=== PATIENT | female | born 2000 | race Caucasian/White ===

== ENCOUNTER → 2021-08-10 | Outpatient (CLI) | payer SELFPAY ==
[2021-08-09 10:40] LABS: Amphetamine Urine VISTA NEGATIVE (<1000 ng/mL); Barbiturate Urine VISTA NEGATIVE (< 200 ng/mL); Benzodiazepine Urine VISTA NEGATIVE (< 200 ng/mL); Cocaine Urine VISTA NEGATIVE (< 300 ng/mL); Ecstacy Urine VISTA NEGATIVE (< 500 ng/mL); Methadone Urine VISTA NEGATIVE (< 300 ng/mL); PCP Urine VISTA NEGATIVE (< 25 ng/mL); THC Urine VISTA NEGATIVE (< 50 ng/mL); Vista UDS pH Range 5
[2021-08-10 21:07] LABS: Chlamydia By Nucleic Acid AMP Negative (Negative)
[2021-08-10 21:48] LABS: Gonococcus By Nucleic Acid AMP Negative (Negative)
== END | disposition home or self-care (01) ==
PROVIDERS: Referring Provider Obstetrics & Gynecology; Visit Provider Obstetrics & Gynecology
DX: Z34.00 Encounter for supervision of normal first pregnancy, unspecified trimester (principal)
CPT/HCPCS: 80307; 87086; 87088; 87491; 87591

== ENCOUNTER → 2021-10-04 | Outpatient (CLI) | payer OTHER, SELFPAY ==
[2021-10-04 09:10] LABS: Absolute Lymphocyte Count 1.27 X10^3/uL (0.83-4.51); Absolute Neutrophil Count 5.1 X10^3/uL (2.0-7.7); Basophil# 0.04 X10^3/uL; Basophil% 0.6 % (0-1); Eosinophil# 0.02 X10^3/uL; Eosinophils% 0.3 % (0-5); Hematocrit 39.2 % (37-47); Hemoglobin 13.3 g/dL (12.0-15.0); Lymphocyte # 1.27 X10^3/ul (0.83-4.51); Lymphocyte % 18.3 % (19-41); Mean Corp Hgb Conc 33.9 g/dL (32-36); Mean Corpuscular Hgb 30.4 pg (27.0-32.0); Mean Corpuscular Volume 89.5 fL (81-99); Mean Platelet Vol. 11.1 fl (6.2-12.0); Monocyte# 0.44 X10^3/uL; Monocyte% 6.3 % (0-10); NRBC Flagged by Analyzer 0 % (0-5); Neutrophil # 5.14 X10^3/uL (2.7-7.7); Neutrophil % 74.1 % (47-70); Platelet Count 150 K/mm3 (150-450); RBC Distribution Width CV 13.3 % (11.6-14.6); RBC Distribution Width SD 43.8 fl (35.1-43.9); Red Blood Count 4.38 M/mm3 (4.2-5.4); White Blood Count 6.9 K/mm3 (4.4-11.0)
[2021-10-04 10:03] LABS: NATERA MAILED SPECIMEN
[2021-10-04 10:25] LABS: HIV - WCH Non-Reactive (Nonreactive); Hepatitis B Surface Antigen Non-Reactive (Nonreactive); Hepatitis C Antibody Non-Reactive (Nonreactive); Rubella IgG Reactive (Nonreactive); Syphilis Antibodies Non-reactive
== END | disposition home or self-care (01) ==
PROVIDERS: Obstetrics & Gynecology; Referring Provider Nurse Practitioner Women's Health; Visit Provider Nurse Practitioner Women's Health
DX: Z34.00 Encounter for supervision of normal first pregnancy, unspecified trimester (principal)
CPT/HCPCS: 36415; 85025; 86703; 86762; 86780; 86803; 86850; 86900; 86901; 87340

== ENCOUNTER → 2021-10-16 | Outpatient (CLI) | payer OTHER, SELFPAY ==
--- NOTE | 2021-10-16 10:39 | US_ITS ---
INDICATION: anatomy . EXAMINATION: Ultrasound US OB Greater Than 14 Weeks TECHNIQUE: Transabdominal pelvic ultrasound was performed. COMPARISON: None. LMP: Unknown. Beta-hCG: Unknown. Provided EGA: None. FINDINGS: INTRAUTERINE GESTATION(s): Single. HEART MOTION is 145 bpm. BIOMETRIC MEASUREMENTS: HEAD CIRCUMFERENCE: 17.06 cm which corresponds with 19 weeks and 4 days. BIPARIETAL DIAMETER: 4.41 cm which corresponds to 19 weeks and 2 days. ABDOMINAL CIRCUMFERENCE: 14.51 cm which corresponds to 19 weeks and 5 days. FEMORAL LENGTH: 2.87 cm which corresponds to 18 weeks and 5 days.. Estimated age by current ultrasound 19 weeks and 3 days. age by LMP 19 weeks and 1 day. ESTIMATED DUE DATE (LINNEA): 03/09/2022 Expected date of delivery by LMP 03/11/2022. ESTIMATED WEIGHT: 28.9 g +/- 4.3 g PRESENTATION: Cephalic AMNIOTIC FLUID INDEX (FIONA): Within normal limits, largest fluid pocket 3.0 x 8.7 cm BIOPHYSICAL PROFILE (BPP): Not assessed. PLACENTA: Anterior. There is no placenta previa or abruption. CERVIX: The cervix is closed. Cervical length measures 4.6 cm. MATERNAL OVARIES: Not seen. FREE FLUID: None. ANATOMY: LATERAL VENTRICLES: Visualized. CHOROID PLEXUS: Visualized. MIDLINE FALX: Visualized. CAVUM SEPTUM PELLUCIDI: Visualized. CEREBELLUM: Unremarkable CISTERNA MAGNA: Visualized. UPPER LIP: Intact. FOUR CHAMBER HEART VIEW: Unremarkable. LEFT VENTRICULAR OUTFLOW TRACT: Visualized. RIGHT VENTRICULAR OUTFLOW TRACT: Visualized. STOMACH: Visualized. KIDNEYS: Visualized, mild dilation of bilateral renal pelvis seen and 0.4 cm. URINARY BLADDER: Visualized. UMBILICAL CORD INSERTION into the abdomen: Unremarkable. UMBILICAL CORD vessel number: Normal three vessel cord. SPINE: Unremarkable. No posterior spinal defect observed. UPPER AND LOWER EXTREMITIES: Present. GENDER: Not assessed. US/OB Anatomy Scan IMPRESSION: Single live intrauterine male with an estimated gestational age of 19 weeks and 3 days. mild dilation of bilateral renal pelvis seen and 0.4 cm. Electronically Signed: Kendell Florez MD at 15:03 EDT ,
== END | disposition home or self-care (01) ==
LOC: OPUS 10:30 → US 10:36
PROVIDERS: Referring Provider Obstetrics & Gynecology; Visit Provider Obstetrics & Gynecology
DX: Z34.02 Encounter for supervision of normal first pregnancy, second trimester (principal); Z3A.19 19 weeks gestation of pregnancy
CPT/HCPCS: 76805; 76817

== ENCOUNTER → 2021-12-18 | Outpatient (CLI) | payer OTHER, SELFPAY ==
[2021-12-18 11:15] LABS: Absolute Lymphocyte Count 1.43 X10^3/uL (0.83-4.51); Absolute Neutrophil Count 6.9 X10^3/uL (2.0-7.7); Basophil# 0.02 X10^3/uL; Basophil% 0.2 % (0-1); Eosinophil# 0.06 X10^3/uL; Eosinophils% 0.7 % (0-5); Hematocrit 35.8 % (37-47); Hemoglobin 12.3 g/dL (12.0-15.0); Lymphocyte # 1.43 X10^3/ul (0.83-4.51); Lymphocyte % 15.5 % (19-41); Mean Corp Hgb Conc 34.4 g/dL (32-36); Mean Corpuscular Volume 93.2 fL (81-99); Mean Platelet Vol. 10.8 fl (6.2-12.0); Monocyte# 0.73 X10^3/uL; Monocyte% 7.9 % (0-10); NRBC Flagged by Analyzer 0 % (0-5); Neutrophil # 6.93 X10^3/uL (2.7-7.7); Neutrophil % 75.3 % (47-70); Platelet Count 150 K/mm3 (150-450); RBC Distribution Width CV 13.2 % (11.6-14.6); RBC Distribution Width SD 44.5 fl (35.1-43.9); Red Blood Count 3.84 M/mm3 (4.2-5.4); White Blood Count 9.2 K/mm3 (4.4-11.0)
[2021-12-18 11:41] LABS: Glucose Challenge Gest 1H 50g 97 mg/dL (70-140)
== END | disposition home or self-care (01) ==
LOC: PAVLAB 10:53
PROVIDERS: Referring Provider Nurse Practitioner Women's Health; Visit Provider Nurse Practitioner Women's Health
DX: Z34.92 Encounter for supervision of normal pregnancy, unspecified, second trimester (principal); Z3A.25 25 weeks gestation of pregnancy
CPT/HCPCS: 36415; 82950; 85025; 86900; 86901

== ENCOUNTER → 2022-02-14 | Outpatient (CLI) | payer OTHER, SELFPAY | END | disposition home or self-care (01) | LOC: LABSPEC 11:51 | PROVIDERS: Visit Provider Obstetrics & Gynecology | DX: Z34.03 Encounter for supervision of normal first pregnancy, third trimester (principal) | CPT/HCPCS: 87081 ==

== ENCOUNTER 2022-02-24 09:45 | Outpatient (CLI) | payer OTHER, SELFPAY ==
[2022-02-24 10:01] VITALS: BP 112/67; PULSE 81; TEMP 36.6
[2022-02-24 10:02] VITALS: O2SAT 97
[2022-02-24 10:04] VITALS: BMI 31.6
[2022-02-24 10:43] LABS: ROM Internal Control Test YES-OK TO RESULT pt. (Internal QC); ROM Patient Test Negative (Negative)
--- NOTE | 2022-02-24 15:14 | OB.TRI.PN ---
Progress Notes Date of Service: 02/24/22 Progress Note: Patient presents for triage evaluation secondary to false labor1 FHT: 130 Moderate variability reactive no decelerations category I tracing [place]: no regular Contractions Assessment and plan: amniotic membranes intact false labor no cervical change rom negative Reactive NST, reassuring maternal and status patient discharged to home to follow-up as scheduled. See problem list details for additional plan information. Laboratory Studies: Laboratory Tests 02/24/22 Range/Units 10:12 Vag Amniotic Fld Detect Negative (Negative) Charges/Coding Procedures Urinary/Genital 52xxx-59xxx: 48853-30 non-stress test Interp
== END 2022-02-24 10:57 | disposition home or self-care (01) ==
LOC: WPOUT 09:52 → WP 09:52
PROVIDERS: Referring Provider Obstetrics & Gynecology; Visit Provider Obstetrics & Gynecology
DX: O47.9 False labor, unspecified (principal); Z3A.00 Weeks of gestation of pregnancy not specified
CPT/HCPCS: 59025; 59050; 84112; 99218; G0378

== ENCOUNTER 2022-02-25 02:22 | Inpatient (IN) | payer OTHER, SELFPAY ==
[2022-02-25] VITALS (39 sets, daily range): BP systolic 89–117; BP diastolic 49–68; PULSE 67–103; RESP 16; TEMP 36.3–37.6; O2SAT 88–100; BMI 31.8
[2022-02-25 02:21] LABS: ROM Internal Control Test YES-OK TO RESULT pt. (Internal QC); ROM Patient Test POSITIVE (Negative)
[2022-02-25] MEDS: LACTATED RINGERS 500 ML 999 ML IV ×2 (02:41→05:46)
[2022-02-25 02:53] LABS: Absolute Lymphocyte Count 1.53 X10^3/uL (0.83-4.51); Absolute Neutrophil Count 6.7 X10^3/uL (2.0-7.7); Basophil# 0.03 X10^3/uL; Basophil% 0.3 % (0-1); Eosinophil# 0.07 X10^3/uL; Eosinophils% 0.8 % (0-5); Hematocrit 34.3 % (37-47); Hemoglobin 11.1 g/dL (12.0-15.0); Lymphocyte # 1.53 X10^3/ul (0.83-4.51); Lymphocyte % 16.4 % (19-41); Mean Corp Hgb Conc 32.4 g/dL (32-36); Mean Corpuscular Hgb 28.8 pg (27.0-32.0); Mean Corpuscular Volume 89.1 fL (81-99); Mean Platelet Vol. 11.6 fl (6.2-12.0); Monocyte# 0.93 X10^3/uL; NRBC Flagged by Analyzer 0 % (0-5); Neutrophil # 6.72 X10^3/uL (2.7-7.7); Platelet Count 157 K/mm3 (150-450); RBC Distribution Width CV 13.2 % (11.6-14.6); Red Blood Count 3.85 M/mm3 (4.2-5.4); White Blood Count 9.3 K/mm3 (4.4-11.0)
[2022-02-25] MEDS: Lactated Ringers 1,000 ML 200 ML IV ×3 (03:12→13:16)
[2022-02-25] MEDS: fentaNYL-bupivacaine (epidural) 100 ML BAG EPIDURAL ×2 (03:47→08:39)
[2022-02-25] MEDS: Oxytocin 15 Units/NS 250ml 15 UNITS/250 ML IV.SOLN 2 UNITS IV (05:19)
--- NOTE | 2022-02-25 06:41 | HP.PCM.OB_ITS ---
HPI - General General Date of Admission: 02/25/22 HPI Narrative TYRELL CASAREZ, is a 21 F who presents IAL with SROM clear fluid regular ctx no vb good fm Maternal Data Information LINNEA Calculator Estimated Delivery Date Method Current WG Current Estimate 03/11/22 LMP (Certain) 38w 0d Other Estimates 03/07/22 Ultrasound #1 38w 4d PFSH PFSH Medical History pyelectasis Home Medications prenat.vits,audrey,[id number] 1 tab PO DAILY 07/26/21 [History Last Taken Unknown] Allergy/AdvReac Type Severity Reaction Status Date / Time No Known Allergies Allergy Verified 02/24/22 10:04 Social History adopted: No household members: significant other current occupational status: employed current occupation: [employer] pets and animals: Yes pets and animals: cat(s) and dog(s) Smoking Status: Never smoker alcohol intake: never substance use type: does not use do you feel safe at home: Yes additional social history: Margarito BF History 1 Elective abortions Hx Para 0 Spontaneous abortions Hx # Term Pregnancies Ectopic pregnancies Hx # Pregnancies Multiple births # of living children Visit Details Expected Delivery Route/Plan Labor Preferences- CB/BF classes: encouraged labor support person: Margarito labor intervention preferences: [] pain management options preferred: open to epidural but wants limited cut cord/dad catch: maybe : yes PP control planned: discussed discussed possible routes of delivery and associated risks: [] special requests: [] Plans Covid status: discussed Flu vaccine: discussed will get 01/05 Tdap vaccine: [] Rhogam: given 12/18/21 LARC form signed: yes movement and labor precautions reviewed. Problem list reviewed and updated with the most current plan of care details and appropriate orders placed. Relevant counseling for the gestational age provided. Continue routine care and follow up unless otherwise noted in visit notes/problem list details OB Flowsheet Initial Weight: Not Recorded Date -?-?-?-?-?-?-?-?-?-?-?-?- EGA Weight BP Urine Prot -?-?-?-?-?-?-?-?-?-?-?-?- Glucose FHR FuHt Pres Dilation -?-?-?-?-?-?-?-?-?-?-?-?- Effaced St Visit Note 08/09/21 -?-?-?-?-?-?-?-?-?-?-?-?- 9w 3d 123 lb 6 oz -?-?-?-?-?-?-?-?-?-?-?-?- 171 -?-?-?-?-?-?-?-?-?-?-?-?- JV- CRL only off by a few days from LMP. LINNEA 03/11/22 09/06/21 -?-?-?-?-?-?-?-?-?-?-?-?- 13w 3d 124 lb 2 oz 100/56 Nega tive -?-?-?-?-?-?-?-?-?-?-?-?- Negative 149 -?-?-?-?-?-?-?-?-?-?-?-?- JV- CRL appropri ate today. no complaints. anatomy ultrasound ordered. nausea is improved. 10/04/21 -?-?-?-?-?-?-?-?-?-?-?-?- 17w 3d 129 lb 6 oz 114/60 Nega tive -?-?-?-?-?-?-?-?-?-?-?-?- Negative 143 -?-?-?-?-?-?-?-?-?-?-?-?- NO VB, cramping. Denies concerns. PN labs and genetics today 11/02/21 -?-?-?-?-?-?-?-?-?-?-?-?- 21w 4d 131 lb 120/66 Negative -?-?-?-?-?-?-?-?-?-?-?-?- Negative 150 20 -?-?-?-?-?-?-?-?-?-?--?-?- JV- no lof, vagi nal bleeding, or cramping . carrier for spinal muscular atrophy. offerred testing for partner. 11/29/21 -?-?-?-?-?-?-?-?-?-?-?-?- 25w 3d 144 lb 110/62 Negative -?-?-?-?-?-?-?-?-?-?-?-?- Negative 150 25 -?-?-?-?-?-?-?-?-?-?-?-?- MH-No VB, LOF. G ood FM. Larc. 28 wk US to check kidneys with MFM 12/0412/18/21 -?-?-?-?-?-?-?-?-?-?-?-?- 28w 1d 158 lb 158 lb 112/68 114/70 112/68 -?-?-?-?-?-?-?-?-?-?-?-?- 145 28 -?-?-?-?-?--?-?-?-?-?-?-?- SM- no vb lof go od fm no regular ctx cbcb gct rhogam 01/05/22 -?-?-?-?-?-?-?-?-?-?-?-?- 30w 5d 159 lb 2 oz 118/74 Nega tive -?-?-?-?-?-?-?-?--?-?-?-?- Negative 156 31 -?-?-?-?-?-?-?-?-?-?-?-?- LC-no ctx,lof,vb . good FM. normal 28 week labs.constipation-to trial colace 100mg bid. discussed flu and tdap. will obtain next visit. 01/15/22 -?-?-?-?-?-?-?-?-?-?-?-?- 32w 1d 162 lb 2 oz 129/80 Nega tive -?-?-?-?-?-?-?-?-?-?-?-?- Negative 125 32 -?-?-?-?-?-?-?-?-?-?-?-?- LC-no ctx, lof,v b. good fm. having muscle cramping at night- stretching and mg recommended. 01/29/22 -?-?-?-?-?-?-?-?-?-?-?-?- 34w 1d 165 lb 8 oz 105/67 Trac e -?-?-?-?-?-?-?-?-?-?-?-?- Negative 138 34 -?-?-?-?-?-?-?-?-?-?-?-?- LC- no ctx,lof,v b. good fm. accepts tdap and flu vaccine today. ultrasound demonstrates resolved pyelectaisis. 02/14/22 -?-?-?-?-?-?-?-?-?-?-?-?- 36w 3d 172 lb 106/69 Negative -?-?-?-?-?-?-?-?-?-?-?-?- Negative 135 37 Cephalic 1 .5 -?-?-?-?-?-?-?-?-?-?-?-?- 80 JV- no l of, vaginal bleeding, or dec FM. GBS collected. 02/23/22 -?-?-?-?-?-?-?-?-?-?-?-?- 37w 5d 173 lb 4 oz 114/73 Nega tive -?-?-?-?-?-?-?-?-?-?-?-?- Negative 145 38 Cephalic 1 .5 -?-?-?-?-?-?-?-?-?-?-?-?- 80 -2 JV- no lof , vaginal bleeding, or dec fm. GBS neg. No complaints. kick counts and labor precautions discussed. 02/25/22 -?-?-?-?-?-?-?-?-?-?-?-?- 38w 0d 174 lb 6 oz 115/65 111/61 111/56 114/62 107/60 108/59 107/58 117/57 113/55 96/53 90/55 92/50 107/57 -?-?-?-?-?-?-?-?-?-?-?-?- -?-?-?-?-?-?-?-?-?-?-?-?- NST FHR Rate Baby A Baseline: 140 Variability:: Moderate Accelerations:: 15 x 15 Decelerations:: None NST Reactive:: Yes FHR Category:: Category I Uterine Activity:: q3-5 ROS Constitutional Constitutional: Reports systems reviewed and no addt'l complaints, except as documented ENT HEENT: Reports systems reviewed and no addt'l complaints, except as documented Cardiovascular Cardiovascular: Reports systems reviewed and no addt'l complaints, except as documented Respiratory/Chest Respiratory/Chest: Reports systems reviewed and no addt'l complaints, except as documented Gastrointestinal Gastrointestinal: Reports systems reviewed and no addt'l complaints, except as documented and nausea; Denies abdominal pain Genitourinary Genitourinary: Reports systems reviewed and no addt'l complaints, except as documented, contractions Details: present and frequency (regular ) and movement Details: present Musculoskeletal Musculoskeletal: Reports systems reviewed and no addt'l complaints, except as documented Integumentary Integumentary: Reports as per HPI Neurologic Neurologic: Reports systems reviewed and no addt'l complaints, except as docum ented Endocrine Endocrinology: Reports systems reviewed and no addt'l complaints, except as documented Vital Signs Vital Signs Vital Signs: 02/25/22 01:56 02/25/22 01:56 02/25/22 01:56 Temperature Temperature Source Temporal Pulse Rate 86 Blood Pressure 115/65 BP Systolic 115 BP Diastolic 65 Pulse Ox 02/25/22 01:56 02/25/22 03:24 02/25/22 03:24 Temperature 98.0 F Temperature Source Pulse Rate 91 Blood Pressure BP Systolic BP Diastolic Pulse Ox 98 02/25/22 03:30 02/25/22 03:30 02/25/22 03:29 Temperature Temperature Source Pulse Rate 83 Blood Pressure 111/61 BP Systolic 111 BP Diastolic 61 Pulse Ox 100 02/25/22 03:34 02/25/22 03:34 02/25/22 03:35 Temperature Temperature Source Pulse Rate 84 Blood Pressure 111/56 L BP Systolic 111 BP Diastolic 56 Pulse Ox 99 02/25/22 03:35 02/25/22 03:40 02/25/22 03:40 Temperature Temperature Source Pulse Rate 78 82 Blood Pressure 114/62 BP Systolic 114 BP Diastolic 62 Pulse Ox 02/25/22 03:40 02/25/22 03:45 02/25/22 03:45 Temperature Temperature Source Pulse Rate 74 Blood Pressure 107/60 BP Systolic 107 BP Diastolic 60 Pulse Ox 97 02/25/22 03:45 02/25/22 03:45 02/25/22 03:51 Temperature Temperature Source Pulse Rate 77 Blood Pressure 108/59 L BP Systolic 108 BP Diastolic 59 Pulse Ox 99 02/25/22 03:51 02/25/22 03:50 02/25/22 03:55 Temperature Temperature Source Pulse Rate 72 Blood Pressure 107/58 L BP Systolic 107 BP Diastolic 58 Pulse Ox 99 02/25/22 03:55 02/25/22 03:55 02/25/22 03:55 Temperature Temperature Source Pulse Rate 70 79 Blood Pressure BP Systolic BP Diastolic Pulse Ox 99 02/25/22 04:00 02/25/22 04:00 02/25/22 04:01 Temperature Temperature Source Pulse Rate 80 76 Blood Pressure BP Systolic BP Diastolic Pulse Ox 88 02/25/22 04:01 02/25/22 04:05 02/25/22 04:05 Temperature Temperature Source Pulse Rate 72 Blood Pressure 117/57 L BP Systolic 117 BP Diastolic 57 Pulse Ox 99 02/25/22 04:06 02/25/22 04:06 02/25/22 04:10 Temperature Temperature Source Pulse Rate 70 Blood Pressure 113/55 L BP Systolic 113 BP Diastolic 55 Pulse Ox 100 02/25/22 04:10 02/25/22 04:11 02/25/22 04:11 Temperature Temperature Source Pulse Rate 67 73 Blood Pressure BP Systolic BP Diastolic Pulse Ox 100 02/25/22 04:15 02/25/22 04:15 02/25/22 04:30 Temperature Temperature Source Pulse Rate 79 Blood Pressure 96/53 L 90/55 L BP Systolic 96 90 BP Diastolic 53 55 Pulse Ox 02/25/22 04:30 02/25/22 04:46 02/25/22 04:46 Temperature Temperature Source Pulse Rate 82 82 Blood Pressure 92/50 L BP Systolic 92 BP Diastolic 50 Pulse Ox 02/25/22 06:32 02/25/22 06:32 02/25/22 06:32 Temperature Temperature Source Temporal Pulse Rate 75 Blood Pressure 107/57 L BP Systolic 107 BP Diastolic 57 Pulse Ox 02/25/22 06:32 Temperature 98.0 F Temperature Source Pulse Rate Blood Pressure BP Systolic BP Diastolic Pulse Ox Weight Weight: 174 lb 6 oz Body Mass Index (BMI) 31.8 Physical Exam Const alert, oriented x3 and healthy appearing Constitutional Narrative: uncomfortable with contractions HEENT normocephalic and moist oral mucous membranes Head and Scalp: atraumatic Neck full ROM, no lymphadenopathy, supple and thyroid normal General: trachea midline Thyroid: thyroid normal Lymph Lymphatic: no lymphadenopathy noted Chest inspection of chest normal Resp normal respiratory effort Cardio regular rate GI normal to inspection, nondistended, normoactive bowel sounds, soft to palpation and non-tender Inspection: gravid external exam normal Bimanual Exam - Vag & Uterus: uterus non-tender Manual OB Exam: estimated gestational size appropriate, presentation cephalic, dilated, effaced and station Extremity normal to inspection General Extremity: Negative for edema Skin no rashes or lesions noted Neuro deep tendon reflexes 2+ bilaterally Motor Exam: strength 5/5 throughout and clonus absent Psych mental status grossly normal Labs Labs Labs: Blood Type A NEGATIVE Antibody Screen NEGATIVE Hct 34.3 % (37-47) L Hgb 11.1 g/dL (12.0-15.0) L Obstetrics US Syphilis Total Ab Non-reactive Rubella IgG Antibody Reactive (Nonreactive) Hep Bs Antigen Non-Reactive (Nonreactive) Chlamydia DNA (BENITO) Negative (Negative) Neisseria gonorrhoeae DNA (BENITO) Negative (Negative) HIV 1&2 Antibody Non-Reactive (Nonreactive) Glucose 1 Hr 50 gm 97 mg/dL (70-140) Assessment & Plan (1) pyelectasis: COMMENT: left, reassess in 4 wks from 01/15(needs to tatiana.)01/18 resolved (2) Carrier of spinal muscular atrophy: COMMENT: partner offered testing- declined. (3) Dilation of renal pelvis of fetus: COMMENT: [facility] referral follow up anatomy US: rpt US 01/15(needs to resched.)01/18 growth 1981g 44% (4) Rh negative state in antepartum period: COMMENT: Rhogam 28 wk, prn bleeding and pp. (5) Supervision of normal first : QUALIFIERS: Trimester: third trimester Qualified Code(s): Z34.03 - Encounter for supervision of normal first , third trimester COMMENT: PRR LINNEA:03/11/22 BF:Margarito Landry (6) : QUALIFIERS: Weeks of gestation: 37 weeks Qualified Code(s): Z3A.37 - 37 weeks gestation of COMMENT: GBS negative, NIPT low risk, carrier neg. carrier for Spinal Muscular Atrophy. anatomy reviewed. (7) Anxiety: COMMENT: no meds currently (8) ADHD: COMMENT: Stopped Vyvanse in June (9) SROM (spontaneous rupture of membranes): (10) Active labor at term: PLAN: Plan Patient presents ial pit PRN. Pain management: plans epidural. GBS neg. Management of any complications: none I have reviewed the [facility] and made any clinically relevant updates.
[2022-02-25] MEDS: Ondansetron 4 MG/2 ML Vial IV (08:48)
[2022-02-25] MEDS: Acetaminophen 500 MG Tablet PO (14:24)
--- NOTE | 2022-02-25 14:25 | OP.PCM_ITS ---
Assessment & Plan (1) Active labor at term: (2) SROM (spontaneous rupture of membranes): (3) pyelectasis: COMMENT: left, reassess in 4 wks from 01/15(needs to tatiana.)01/18 resolved (4) Carrier of spinal muscular atrophy: COMMENT: partner offered testing- declined. (5) Dilation of renal pelvis of fetus: COMMENT: [facility] referral follow up anatomy US: rpt US 01/15(needs to resched.)01/18 growth 1981g 44% (6) Rh negative state in antepartum period: COMMENT: Rhogam 28 wk, prn bleeding and pp. (7) Supervision of normal first : QUALIFIERS: Trimester: third trimester Qualified Code(s): Z34.03 - Encounter for supervision of normal first , third trimester COMMENT: PRR LINNEA:03/11/22 BF:Margarito Prashanthling (8) : QUALIFIERS: Weeks of gestation: 37 weeks Qualified Code(s): Z3A.37 - 37 weeks gestation of COMMENT: GBS negative, NIPT low risk, carrier neg. carrier for Spinal Muscular Atrophy. anatomy reviewed. (9) Anxiety: COMMENT: no meds currently (10) ADHD: COMMENT: Stopped Vyvanse in June (11) Vaginal delivery: COMMENT: SM IAL 38 boy [place] Maternal Data Information LINNEA Calculator Estimated Delivery Date Method Current WG Current Estimate 03/11/22 LMP (Certain) 38w 0d Other Estimates 03/07/22 Ultrasound #1 38w 4d Vaginal Delivery Operative Information Date of Procedure: 02/25/22 Pre-Operative Diagnosis: IAL Post-Operative Diagnosis: same Surgery / Procedure Performed: Spontaneous Vaginal Delivery Type of Anesthesia: Epidural Special Medications: none Estimated Blood Loss: 200 Fluids Replaced: crystalloid Findings Description of Procedure: Patient began pushing and delivered the head in the GWEN presentation. The head was delivered atraumatically . The anterior and posterior shoulders delivered without complication followed by the rest of the and the was placed on the maternal abdomen. Delayed cord clamping was employed for approximately 60 seconds. Cord was clamped and cut and gentle traction was applied to the cord and the placenta delivered spontaneously immediately following it was noted to be intact with three-vessel cord. The perineum and vagina were inspected and noted to have no laceration. EBL was 200. Patient and tolerated delivery well. Presentation: GWEN Amniotic Membrane Rupture Type: Spontaneous Amniotic Fluid Description: Clear Placental Delivery Description: Spontaneous Placenta Disposition: [facility] Cord Vessel Description: 3 Vessels Cord Entanglement: None A Gender: Male Delayed Cord Clamping: Yes Post Vaginal Delivery Medications Given After Delivery: IV Pitocin Episiotomy Description: None Laceration: None Complication Complications: None Procedures Urinary/Genital 52xxx-59xxx: [id number] Vaginal Delivery [facility]
--- NOTE | 2022-02-25 14:27 | DCINST_ITS ---
Discharge Instructions Diet Discharge Diet: No restrictions Activity Discharge Activity: Return to Normal Activity, May Drive, May Shower and May Take a Tub Bath (in 4 weeks) May resume sexual activity in: 6-8 weeks (after seen by OB provider) Weight Bearing Status: Full weight bearing Lifting Restrictions: none Dressing / Incision Call your doctor if you observe: Fever of 101 or Higher, Inability to urinate, Using more than 1 pad per hour (for more than 2 hours in a row or more), Shortness of breath, Dizziness, Chest pain and - (headache not controlled with tylenol, change in vision) Follow Up Care When: in 6 weeks for visit, call the office to make the appointment. If you had elevated blood pressures call the office to be seen within 1 week. Test Results: Test results from this visit will be discussed in further detail at your follow- up appointment, if applicable. Discharge Plan Admission Admit Date/Time: 02/25/22 02:22 Attending Provider: Bethanie Arenas Primary Care Provider: Care Physician,lEsa Primary Discharge Orders/Prescriptions Prescriptions: No Action prenat.vits,audrey,[id number] Tablet 1 tab PO DAILY Referrals / Follow Up: Care Physician,No Primary [Primary Care Provider] - Disposition Disposition (needs filled in before D/C Order can be placed): Home, Self Care
[2022-02-25] MEDS: Acetaminophen 500 MG Tablet 1000 MG PO (23:52)
[2022-02-26 03:50] VITALS: BP 99/51; PULSE 78; RESP 16; TEMP 36.3; O2SAT 97
[2022-02-26 07:22] VITALS: BP 106/61; PULSE 79; RESP 16; TEMP 36.4; O2SAT 99
[2022-02-26] MEDS: Acetaminophen 500 MG Tablet 1000 MG PO (07:48)
--- NOTE | 2022-02-26 08:05 | PN.OBGYN_ITS ---
Subjective Subjective Patient doing well without complaints. Tolerating PO. Ambulating and voiding without difficulty. is not latching well, is finger feeding expressed milk, awaiting . Denies chest pain, shortness of breath, calf pain/swelling, fevers, chills, lightheadedness. Objective Data Objective Data Vital Signs: Vital Signs Temp Pulse Resp BP Pulse Ox O2 Del Method 97.6 F L 79 16 106/61 99 Room Air 02/26/22 07:22 02/26/22 07:22 02/26/22 07:22 02/26/22 07:22 02/26/22 07:22 02/26/22 07:22 Oxygen Delivery Method Room Air Weight: 174 lb 6 oz Body Mass Index (BMI) 31.8 Intake & Output: Intake and Output for Last 24 Hours 02/24/22 02/25/22 02/26/22 23:59 23:59 23:59 Intake Total 3373.33 / 3373.33 Output Total 3500 / 3500 Balance -126.67 / -126.67 Lab / Micro Data Attestation: I reviewed the patient's lab results. Result Diagrams: 02/25/22 02:40 ROS Constitutional Constitutional: Reports systems reviewed and no addt'l complaints, except as documented Eyes Eyes: Reports systems reviewed and no addt'l complaints, except as documented Cardiovascular Cardiovascular: Reports none Respiratory/Chest Respiratory/Chest: Reports none Gastrointestinal Gastrointestinal: Reports none Genitourinary Genitourinary: Denies burning urination, change in urinary stream, difficulty urinating, genital pain, urinary frequency, urinary hesitancy, urinary inc ontinence or urinary urgency Musculoskeletal Musculoskeletal: Reports none Integumentary Integumentary: Reports none Neurologic Neurologic: Reports none Psychiatric Psychiatric: Reports none Physical Exam Const alert, oriented x3 and no apparent distress HEENT normocephalic Eyes PERRL Neck full ROM Chest inspection of chest normal Resp normal respiratory effort, normal air movement, no retractions and no use of accessory muscles Cardio regular rate and regular rhythm GI soft to palpation GI Narrative: fundus firm 1 below U. normal lochia rubra. small-moderate amount. no clots Extremity normal to inspection Psych mental status grossly normal, thought process normal, cooperative and affect normal Assessment & Plan (1) Vaginal delivery: COMMENT: IAL 38 boy [place] PLAN: s/p PPD # 1 1. routine post delivery care 2. breast feeding- support given. to see 3. rh positive 4. rubella immune 5. will likely d/c tomorrow after improved latch/feeding is demonstrated (2) Rh negative state in antepartum period: COMMENT: Rhogam 28 wk, prn bleeding and pp. (3) Anxiety: COMMENT: no meds currently (4) ADHD: COMMENT: Stopped Vyvanse in June
[2022-02-26 12:27] VITALS: BP 114/63; PULSE 89; RESP 16; TEMP 36.3; O2SAT 100
[2022-02-26 15:35] VITALS: BP 107/48; PULSE 95; RESP 16; TEMP 36.3; O2SAT 96
[2022-02-26 20:47] VITALS: BP 101/63; PULSE 89; RESP 18; TEMP 36.4; O2SAT 97
[2022-02-26] MEDS: Naproxen 500 MG Tablet PO (21:00)
[2022-02-27 01:56] VITALS: BP 108/63; PULSE 77; RESP 16; TEMP 36.1; O2SAT 97
[2022-02-27 08:26] VITALS: BP 109/62; PULSE 72; RESP 16; TEMP 36.4; O2SAT 98
--- NOTE | 2022-02-27 10:09 | PCM.PN.OB ---
Subjective Subjective Patient doing well without complaints. Tolerating PO. Ambulating and voiding without difficulty. feeding well. Denies chest pain, shortness of breath, calf pain/swelling, fevers, chills, lightheadedness. Objective Data Objective Data Vital Signs: Vital Signs Temp Pulse Resp BP Pulse Ox O2 Del Method 97.5 F L 72 16 109/62 98 Room Air 02/27/22 08:26 02/27/22 08:26 02/27/22 08:26 02/27/22 08:26 02/27/22 08:26 02/27/22 08:26 Oxygen Delivery Method Room Air Weight: 79.095 kg Body Mass Index (BMI) 31.8 Intake & Output: Intake and Output for Last 24 Hours 02/25/22 02/26/22 02/27/22 23:59 23:59 23:59 Intake Total 3373.33 / 3373.33 Output Total 3500 / 3500 Balance -126.67 / -126.67 Lab / Micro Data Result Diagrams: 02/25/22 02:40 ROS Constitutional Constitutional: Reports systems reviewed and no addt'l complaints, except as documented Cardiovascular Cardiovascular: Reports systems reviewed and no addt'l complaints, except as documented Respiratory/Chest Respiratory/Chest: Reports systems reviewed and no addt'l complaints, except as documented Gastrointestinal Gastrointestinal: Reports systems reviewed and no addt'l complaints, except as documented Physical Exam Const alert, oriented x3 and no apparent distress HEENT Head and Scalp: atraumatic Resp normal respiratory effort GI soft to palpation and non-tender Bimanual Exam - Vag & Uterus: uterus non-tender Uterus Palpation: uterus fundus firm (below Umbilicus) Assessment & Plan (1) Rh negative state in antepartum period: COMMENT: Rhogam 28 wk, prn bleeding and pp. PLAN: Plan s/p PPD # 2 1. routine post delivery care 2. breast feeding- support given 3. rh positive 4. rubella immune
[2022-02-27 13:12] VITALS: BP 114/65; PULSE 72; RESP 16; TEMP 36.3
--- NOTE | 2022-02-27 16:04 | NURSING ---
No IBCLC on unit this morning to see patient before discharge. Phone call made at 1600 to patient to make sure there were no questions or concerns and to offer an outpatient visit. No answer. Voicemail left with this information and the phone number.
== END 2022-02-27 13:35 | disposition home or self-care (01) | DRG 807 ==
LOC: WPOUT 02:24 → WP 02:24
PROVIDERS: Admitting Provider Obstetrics & Gynecology; Visit Provider Obstetrics & Gynecology
DX: O35.EXX0 Maternal care for other (suspected) fetal abnormality and damage, fetal genitourinary anomalies, not applicable or unspecified (principal); Z37.0 Single live birth; Z3A.37 37 weeks gestation of pregnancy
CPT/HCPCS: 59025; 59050; 84112; 85025; 86850; 86900; 86901; 99218; J7120; G0378; J2405

== ENCOUNTER → 2022-04-18 | Outpatient (CLI) | payer OTHER, SELFPAY ==
[2022-04-25 20:21] LABS: HPV Reflexed? NOT INDICATED
== END | disposition home or self-care (01) ==
LOC: LABSPEC 14:30
PROVIDERS: Referring Provider Nurse Practitioner Women's Health; Visit Provider Nurse Practitioner Women's Health
DX: Z12.4 Encounter for screening for malignant neoplasm of cervix (principal)
CPT/HCPCS: 88175; G0145

== ENCOUNTER 2023-01-21 16:17 | Emergency (ER) | payer OTHER, MEDICAID, SELFPAY ==
[2023-01-21 16:18] VITALS: BP 113/73; PULSE 87; RESP 16; TEMP 36.3; O2SAT 99; BMI 29.6
[2023-01-21 17:38] LABS: Mucous, Urine 0 SEEN /hpf (<or=2+)
[2023-01-21 17:42] LABS: Absolute Lymphocyte Count 2.28 X10^3/uL (0.83-4.51); Absolute Neutrophil Count 6.3 X10^3/uL (2.0-7.7); Basophil# 0.05 X10^3/uL; Basophil% 0.5 % (0-1); Eosinophil# 0.08 X10^3/uL; Eosinophils% 0.9 % (0-5); Hematocrit 45.9 % (37-47); Hemoglobin 14.9 g/dL (12.0-15.0); Lymphocyte # 2.28 X10^3/ul (0.83-4.51); Lymphocyte % 24.4 % (19-41); Mean Corp Hgb Conc 32.5 g/dL (32-36); Mean Corpuscular Hgb 28.5 pg (27.0-32.0); Mean Corpuscular Volume 87.8 fL (81-99); Mean Platelet Vol. 11.4 fl (6.2-12.0); Monocyte# 0.62 X10^3/uL; Monocyte% 6.6 % (0-10); NRBC Flagged by Analyzer 0 % (0-5); Neutrophil # 6.28 X10^3/uL (2.7-7.7); Neutrophil % 67.3 % (47-70); Platelet Count 242 K/mm3 (150-450); RBC Distribution Width CV 12.5 % (11.6-14.6); RBC Distribution Width SD 40.2 fl (35.1-43.9); Red Blood Count 5.23 M/mm3 (4.2-5.4); White Blood Count 9.3 K/mm3 (4.4-11.0)
--- NOTE | 2023-01-21 17:42 | EDS_ITS ---
HPI HPI - GI History of Present Illness Chief Complaint: Abd Pain Abdominal Pain/Flank Pain Onset: Days Context: Gradual Onset Timing: Waxes and wanes Quality: Sharp Location: RLQ Worsened by: Movement Relieved by: Nothing Nausea/Vomiting/Emesis GI Symptom: Negative for Nausea or Vomiting Diarrhea/Melena/Hematochezia GI Symptom: Negative for Diarrhea, Melena or Hematochezia Associated Symptoms Associated Symptoms: Negative for Dysuria, Frequency or Hematuria LMP: Last month Narrative Narrative: Patient presents with right lower quadrant abdominal pain that has been waxing and waning for the past couple days. Patient states it comes on gradually. Patient describes it as sharp. Patient states her pain is mainly over the right lower abdomen. Patient states it occasionally radiates into her right shoulder and trapezius area. Patient states it is worse with walking. Patient denies any nausea or vomiting. Patient states her appetite is good and she is hungry currently. Patient denies any diarrhea, melena, or hematochezia. Patient denies any dysuria, frequency, or hematuria. Patient states her last menstrual period was last month. 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 pets and animals: Yes pets and animals: cat(s) and dog(s) Smoking Status: Never smoker alcohol intake: never substance use type: does not use do you feel safe at home: Yes additional social history: Margar[employer] MCKEE ROS ROS ED Constitutional Constitutional ED: Denies chills or fever(s) Eyes Eyes: Denies blurry vision or change in vision ENT ENT ED: Denies rhinorrhea or sore throat Cardiovascular Cardiovascular: Denies chest pain or palpitations Respiratory/Chest Respiratory/Chest: Denies cough or dyspnea Gastrointestinal Gastrointestinal: Reports abdominal pain; Denies nausea or vomiting Genitourinary Genitourinary ED: Denies dysuria or hematuria Musculoskeletal Musculoskeletal: Reports back pain and neck pain Integumentary Denies abscess or rash Neurologic Neurologic: Denies headache(s) or weakness Allergic/Immunologic Allergic/Immunologic ED: Denies mouth swelling or urticaria EXAM Physical Exam Const Vital Signs: 01/21/23 16:18 Temperature 97.3 F L Temperature Source Temporal Pulse Rate 87 Respiratory Rate 16 Blood Pressure 113/73 Blood Pressure Mean 86 Pulse Ox 99 Oxygen Delivery Method Room Air Positive well nourished and well developed General Appearance ED: well developed and NAD HEENT Reports moist mucous membranes Neck supple and no JVD Resp normal respiratory effort and clear to auscultation bilaterally Cardio regular rate and regular rhythm GI non-distended Palpation: soft and tender RLQ; Negative for guarding or rebound tenderness present Neuro CN's II-XII intact bilaterally, moves all extremities and no sensory deficits noted Sensorium / Orientation: alert Motor Exam: strength 5/5 throughout Psych mental status grossly normal and thought process normal MDM MDM MDM Narrative Medical decision making narrative: Differential diagnosis includes appendicitis, urinary tract infection, ureteral calculus, gastroenteritis, ectopic , ovarian cyst, and uterine pain. CBC will be obtained to assess for leukocytosis and anemia. Comprehensive metabolic profile will be obtained to assess for hepatic function, renal function, and electrolyte abnormality. Serum hCG will be obtained to assess for . Urinalysis will be obtained to assess for urinary tract infection and hematuria. Lab Data Attestation: I reviewed the patient's lab results. Lab results narrative: CBC was reviewed and was within normal limits. Comprehensive metabolic profile was reviewed and was within normal limits. Serum hCG was reviewed and was negative. Urinalysis was reviewed. There is no evidence of urinary tract infection or hematuria. Labs: Laboratory Results - last 24 hr 01/21/23 01/21/23 17:20 17:25 WBC 9.3 RBC 5.23 Hgb 14.9 Hct 45.9 MCV 87.8 MCH 28.5 MCHC 32.5 RDW Std Deviation 40.2 RDW Coeff of Ever 12.5 Plt Count 242 MPV 11.4 Immature Gran % (Auto) 0.300 Neut % (Auto) 67.3 Lymph % (Auto) 24.4 [place] % (Auto) 6.6 Eos % (Auto) 0.9 Baso % (Auto) 0.5 Absolute Neuts (auto) 6.3 Absolute Lymphs (auto) 2.28 Nucleated RBC % 0 Sodium 137 Potassium 3.5 Chloride 107 Carbon Dioxide 26.0 Anion Gap 4 L BUN 12 Creatinine 0.64 Estim Creat Clear Calc 109.05 Est GFR (MDRD) Af Amer 148 Est GFR (MDRD) Non-Af 122 BUN/Creatinine Ratio 18.7 Glucose 89 Calcium 9.2 Total Bilirubin 0.30 AST 17 ALT 20 Alkaline Phosphatase 109 Total Protein 8.0 Albumin 4.1 Globulin 3.9 Albumin/Globulin Ratio 1.1 Serum , Qual NEGATIVE Urine Color Yellow Urine Clarity Clear Urine pH 6.5 Ur Specific Horatio 1.015 Urine Protein 15 H Urine Glucose (UA) Normal Urine Ketones 50 H Urine Occult Blood 25 H Urine Nitrite Negative Urine Bilirubin Negative Urine Urobilinogen Normal Ur Leukocyte Esterase 25 H Urine RBC 0-5 SEEN Urine WBC 0-5 SEEN Ur Squamous Epith Cells 0-5 SEEN Urine Bacteria 1+ Urine Mucus 0 SEEN Treatment and Re-Evaluation :: Patient was advised of her findings. Given a normal white blood cell count, normal electrolytes, and normal urinalysis, I do not feel that the patient requires CT imaging at this time. Also, her appetite is good and she is currently hungry which goes against appendicitis. Patient was instructed to take Tylenol or ibuprofen as needed for pain. Patient was instructed to follow- up with her primary care physician in 5 to 7 days. Patient understood and was agreeable with the plan. All questions were answered. Discharge Plan Triage Chief Complaint: Abd Pain ED Provider: Daniel Nuñez Dx/Rx/DC Orders Clinical Impression: Right lower quadrant abdominal pain Instructions: ED Abdominal Pain Unkn Cause Fem Prescriptions: No Action prenat.vits,audrey,[id number] Tablet 1 tab PO DAILY sertraline [Zoloft] 50 mg tablet 50 mg PO DAILY Qty: 30 1RF Primary Care Provider: Care Physician,No Primary Referrals: Linda Pineda MD [Med Staff - [employer]] - 5-7 Days Care Physician,No Primary [Primary Care Provider] - Disposition Disposition: Home, Self Care
[2023-01-21 17:50] LABS: Color, Urine Yellow (Yellow); Glucose, Dipstick Normal (Normal); Ketone-Dipstick 50 mg/dl (Negative); Leukocyte Esterase-Dipstick 25 /ul (Negative); Nitrite-Dipstick Negative (Negative); Occult Blood-Urine 25 /ul (Negative); Protein-Dipstick 15 mg/dl (Negative); Specific Gravity, Urine 1.015 (1.002-1.030); Urine Bilirubin Dipstick Negative (Negative); Urine Clarity Clear (Clear); Urine Urobilinogen Normal (Normal); Urine pH 6.5 (5.0 - 8.0)
[2023-01-21 17:52] LABS: Internal QC Validated? YES +Cl - CLEAR BKGD; Pregnancy, Serum, hCG Quali. NEGATIVE Negative
[2023-01-21 18:01] LABS: ALB/GLOB Ratio 1.1 RATIO (0.9-2.4); AST(SGOT) 17 U/L (15-37); Alanine Aminotransfer ALT/SGPT 20 U/L (13-56); Albumin, Serum 4.1 g/dL (3.2-5.0); Alkaline Phosphatase 109 U/L (45-117); Anion Gap 4 (5-15); BUN 12 mg/dL (7-18); BUN/Creat Ratio 18.7 RATIO (10-20); Calcium,Total 9.2 mg/dL (8.5-10.1); Chloride 107 mmol/L (98-107); Creatinine, Serum 0.64 mg/dL (0.55-1.02); EST Glomerular Filtration Rate 122 mL/min (>60); Est Glom Filt Rate - Afr Amer 148 mL/min (>60); Estimated Creatinine Clearance 109.05 ml/min; Globulin 3.9 g/dL (2.2-4.2); Glucose 89 mg/dL (74-106); Potassium 3.5 mmol/L (3.5-5.1); Sodium Level 137 mmol/L (136-145)
[2023-01-21 18:03] LABS: Bacteria 1+ /hpf (None Seen); Red Blood Cells-Urine 0-5 SEEN /hpf (0-5); Squamous Epithelial Cells - UA 0-5 SEEN /hpf (5-10); White Blood Cells 0-5 SEEN /hpf (0-5)
[2023-01-21 18:41] VITALS: PULSE 79; RESP 18; O2SAT 100
== END 2023-01-21 18:42 | disposition home or self-care (01) ==
PROVIDERS: Emergency Provider Emergency Medicine; Visit Provider Emergency Medicine
DX: R10.31 Right lower quadrant pain (principal)
CPT/HCPCS: 80053; 81001; 84703; 85025; 99282; A4216